=== PATIENT | female | born 1965 | race Caucasian/White ===

== ENCOUNTER 2023-09-08 13:54 | Emergency (ER) | payer MEDICAID ==
[~2023-09-08] VITALS: Ht 165.1 cm; Wt 64.0 kg
[2023-09-08 13:56] VITALS: TEMP 97.5; O2SAT 99
[2023-09-08 14:15] VITALS: BP 127/79; PULSE 76; RESP 18
[2023-09-08] MEDS ORDERED: KETOROLAC 60MG/2ML VIAL IM ONE (14:15)
[2023-09-08] MEDS ORDERED: HYDROCODONE/ACETAMINOPHEN 10/325MG TABLET PO ONE (14:15)
== END 2023-09-08 17:29 | disposition left against medical advice (07) ==
LOC: ER 13:54
DX: M54.50 Low back pain, unspecified (principal); E11.9 Type 2 diabetes mellitus without complications; M19.90 Unspecified osteoarthritis, unspecified site; M81.0 Age-related osteoporosis without current pathological fracture
CPT/HCPCS: 74176; 96372; 99285; J1885; Z7610

== ENCOUNTER 2024-06-10 20:06 | Emergency (ER) | payer MEDICAID ==
[~2024-06-10] VITALS: Ht 160 cm; Wt 61.0 kg
[~2024-06-10 20:06] MED LIST: BUSP10TA4 MT; ESOM20CA37 PO; GABA-532 PO; HYDR200T80 PO; LEVO25TA7 MT
[2024-06-10 20:09] VITALS: TEMP 98.1; O2SAT 100
[2024-06-10 21:09] LABS: BASOPHILS % 0.9 % (0.0-2.0); EOSINOPHILS % 3.8 % (0.0-5.0); HEMATOCRIT. 36.8 % (36.0-48.0); HEMOGLOBIN. 12.7 g/dL (12.0-16.0); MEAN CORPUSCULAR HEMOGLOBIN 33.3 pg (28.0-32.0); MEAN CORPUSCULAR HGB CONC 34.5 g/dL (31.0-37.0); MEAN CORPUSCULAR VOLUME 96.5 fL (81.0-99.0); MEAN PLATELET VOLUME 8.5 fl (7.4-10.4); MONOCYTES % 3.9 % (2.0-8.0); NEUTROPHILS % 51.4 % (40.0-76.0); PLATELET 207 x1000/uL (130-400); RED BLOOD CELL COUNT 3.81 mill/uL (4.2-5.4); RED CELL DISTRIBUTION WIDTH 12.3 % (11.6-14.6); WHITE BLOOD COUNT 4.6 x1000/uL (4.5-11.0)
[2024-06-10 21:10] LABS: CHLORIDE 104 mEq/L (98-107); POTASSIUM 3.5 mEq/L (3.5-5.1); SODIUM 139 mEq/L (136-145)
[2024-06-10 21:11] LABS: CALCIUM 9.2 mg/dL (8.7-10.4); CARBON DIOXIDE 31 mEq/L (21-32)
[2024-06-10 21:16] LABS: CREATININE 0.7 mg/dL (0.6-1.0); GLUCOSE 74 mg/dL (70-105); UREA NITROGEN BLOOD 10 mg/dL (9-23)
[2024-06-10 21:18] LABS: ALANINE AMINOTRANSFERASE 14 IU/L (10-49); ALBUMIN 4.7 g/dL (3.2-4.8); ASPARTATE AMINOTRANSFERASE 23 IU/L (<34); BILIRUBIN DIRECT 0.2 mg/dL (<=3.0); BILIRUBIN TOTAL 0.4 mg/dL (0.1-1.0); PROTEIN TOTAL 7.2 g/dL (6.0-8.3)
[2024-06-10] MEDS: IBUPROFEN 600MG TABLET PO NR (22:01)
[2024-06-11 00:50] LABS: CLARITY URINE CLEAR (CLEAR); COLOR URINE YELLOW (YELLOW); GLUCOSE URINE NEGATIVE (NEGATIVE); KETONES URINE NEGATIVE (NEGATIVE); LEUKOCYTE ESTERASE URINE TRACE (NEGATIVE); NITRITE URINE NEGATIVE (NEGATIVE); OCCULT BLOOD URINE TRACE (NEGATIVE); PH URINE 6.5 (4.5-8.0); PROTEIN URINE NEGATIVE (NEGATIVE); SPECIFIC GRAVITY URINE 1.007 (1.005-1.030); UROBILINOGEN URINE 0.2 E.U./dL (0.2-1.0)
[2024-06-11 01:22] LABS: BACTERIA URINE NONE SEEN; RBC URINE 0-2 /hpf (0-2); SQUAMOUS EPITHELIAL CELL URINE 1+ /lpf (RARE/1+)
[2024-06-11] MEDS ORDERED: NAPR-681 MT (02:32)
[2024-06-11] MEDS ORDERED: LEVO-65 MT (02:36)
[2024-06-11 02:48] VITALS: BP 94/52; PULSE 65; RESP 16
== END 2024-06-11 03:16 | disposition home or self-care (01) ==
LOC: ER 20:06
DX: R82.90 Unspecified abnormal findings in urine (principal); M32.9 Systemic lupus erythematosus, unspecified; J45.909 Unspecified asthma, uncomplicated; Z86.73 Personal history of transient ischemic attack (TIA), and cerebral infarction without residual deficits; Z85.9 Personal history of malignant neoplasm, unspecified; Z98.890 Other specified postprocedural states; Z79.899 Other long term (current) drug therapy
CPT/HCPCS: 36415; 80048; 80076; 81003; 85025; 86850; 86900; 93005; 99284

== ENCOUNTER 2024-06-15 17:32 | Emergency (ER) | payer MEDICAID ==
[~2024-06-15] VITALS: Ht 152.4 cm; Wt 61.0 kg
[~2024-06-15 17:32] MED LIST changes: +LEVO-65 MT; +NAPR-681 MT
[2024-06-15 17:55] VITALS: O2SAT 100
[2024-06-15] MEDS: IBUPROFEN 600MG TABLET PO ONE (19:21)
[2024-06-15] MEDS ORDERED: METH-653 MT (20:46)
[2024-06-15 21:10] VITALS: BP 143/74; PULSE 74; RESP 12; TEMP 98.3
== END 2024-06-15 21:11 | disposition home or self-care (01) ==
LOC: ER 17:32
DX: M79.605 Pain in left leg (principal); J45.909 Unspecified asthma, uncomplicated; Z88.0 Allergy status to penicillin; Z79.899 Other long term (current) drug therapy; Z86.73 Personal history of transient ischemic attack (TIA), and cerebral infarction without residual deficits; Z98.890 Other specified postprocedural states
CPT/HCPCS: 93971; 99284

== ENCOUNTER 2025-04-25 17:55 | Emergency (ER) | payer MEDICAID, OTHER ==
[~2025-04-25] VITALS: Ht 160 cm; Wt 65.0 kg
[~2025-04-25 17:55] MED LIST changes: -ESOM20CA37 PO; +ESOM20CA49 PO; +GABA-1180 PO; -GABA-532 PO; +METH-653 MT
[2025-04-25 18:16] VITALS: O2SAT 99
[2025-04-25 19:00] LABS: BASOPHILS % 0.4 % (0.0-2.0); EOSINOPHILS % 1.6 % (0.0-5.0); HEMATOCRIT. 38.8 % (36.0-48.0); HEMOGLOBIN. 13.1 g/dL (12.0-16.0); LYMPHOCYTES % 19.8 % (20.0-50.0); MEAN CORPUSCULAR HEMOGLOBIN 32.2 pg (28.0-32.0); MEAN CORPUSCULAR HGB CONC 33.8 g/dL (31.0-37.0); MEAN CORPUSCULAR VOLUME 95.1 fL (81.0-99.0); MEAN PLATELET VOLUME 8.1 fl (7.4-10.4); MONOCYTES % 7.7 % (2.0-8.0); NEUTROPHILS % 70.5 % (40.0-76.0); PLATELET 185 x1000/uL (130-400); RED BLOOD CELL COUNT 4.08 mill/uL (4.2-5.4); RED CELL DISTRIBUTION WIDTH 12.3 % (11.6-14.6); WHITE BLOOD COUNT 3.3 x1000/uL (4.5-11.0)
[2025-04-25 19:02] LABS: CHLORIDE 103 mEq/L (98-107)
[2025-04-25 19:03] LABS: POTASSIUM 3.6 mEq/L (3.5-5.1); SODIUM 139 mEq/L (136-145)
[2025-04-25 19:04] LABS: CARBON DIOXIDE 29 mEq/L (21-32)
[2025-04-25 19:08] LABS: CREATININE 0.7 mg/dL (0.6-1.0)
[2025-04-25 19:09] LABS: GLUCOSE 99 mg/dL (70-105); UREA NITROGEN BLOOD 8 mg/dL (9-23)
[2025-04-25 19:20] VITALS: TEMP 36.8
[2025-04-25 20:45] VITALS: BP 122/66; PULSE 71; RESP 11; O2SAT 100
== END 2025-04-25 21:01 | disposition home or self-care (01) ==
LOC: ER 17:55
DX: N81.10 Cystocele, unspecified (principal); F17.200 Nicotine dependence, unspecified, uncomplicated; J45.909 Unspecified asthma, uncomplicated; Z79.1 Long term (current) use of non-steroidal anti-inflammatories (NSAID); Z79.890 Hormone replacement therapy; Z86.73 Personal history of transient ischemic attack (TIA), and cerebral infarction without residual deficits; Z88.0 Allergy status to penicillin; Z79.899 Other long term (current) drug therapy
CPT/HCPCS: 36415; 80048; 85025; 99284